=== PATIENT | male | born 1975 | race Caucasian/White ===

== ENCOUNTER 2016-05-29 19:28 | Emergency (ER) | payer OTHER ==
[~2016-05-29] VITALS: Ht 198.1 cm; Wt 122.1 kg
[~2016-05-29 19:28] MED LIST: AMOXICILLIN500 MG PO; COLACE100 MG PO; FLEXERIL10 MG PO; MEDROL DOSEPAK4 MG PO; NAPROSYN500 MG PO; NOHOMEMEDS; PERCOCET 5/31 TABLET PO; TYLENOL WITH C1 EACH PO; ZOFRAN4 MG PO; latuda; seroquel; zoloft
[2016-05-29] MEDS ORDERED: PREDNISONE20 MG PO (20:19)
[2016-05-29] MEDS ORDERED: ATARAX,VISTARIL25 MG PO (20:19)
[2016-05-29 20:33] VITALS: BP 148/91
== END 2016-05-29 20:34 | disposition home or self-care (01) ==
LOC: EME 19:28
DX: R21 Rash and other nonspecific skin eruption (principal); T50.905A Adverse effect of unspecified drugs, medicaments and biological substances, initial encounter; G89.29 Other chronic pain; F17.200 Nicotine dependence, unspecified, uncomplicated
CPT/HCPCS: 99281; 99284; J7512; Q0177

== ENCOUNTER 2016-06-20 00:06 | Emergency (ER) | payer OTHER ==
[~2016-06-20] VITALS: Ht 198.1 cm; Wt 128.0 kg
[~2016-06-20 00:06] MED LIST changes: +ATARAX,VISTARIL25 MG PO; +PREDNISONE20 MG PO
[2016-06-20] MEDS ORDERED: PEN-VEE K,VEET500 MG PO (00:34)
[2016-06-20] MEDS ORDERED: NORCO 5/3251 TABLET PO (00:34)
[2016-06-20 00:53] VITALS: BP 141/95
== END 2016-06-20 00:53 | disposition home or self-care (01) ==
LOC: EME 00:06
PROC: 3E0X3BZ Introduction of Anesthetic Agent into Cranial Nerves, Percutaneous Approach (ICD-10-PCS; principal; 2016-06-20)
DX: K04.7 Periapical abscess without sinus (principal); F17.200 Nicotine dependence, unspecified, uncomplicated
CPT/HCPCS: 99281; 99283

== ENCOUNTER 2016-11-09 12:08 | Emergency (ER) | payer OTHER ==
[~2016-11-09] VITALS: Ht 198.1 cm; Wt 126.0 kg
[~2016-11-09 12:08] MED LIST changes: +NORCO 5/3251 TABLET PO; +PEN-VEE K,VEET500 MG PO
[2016-11-09] MEDS ORDERED: TRAMADOL HCL50 MG PO (12:51)
[2016-11-09] MEDS ORDERED: PERCOCET 5/31 TABLET PO (12:51)
[2016-11-09] MEDS ORDERED: LYRICA100 MG PO (12:57)
[2016-11-09] MEDS ORDERED: NAPROXEN500 MG PO (12:58)
[2016-11-09] MEDS ORDERED: RANITIDINE HCL150 MG PO (12:58)
[2016-11-09] MEDS ORDERED: HYDROCODON-ACE1 EAC8 PO (12:58)
[2016-11-09] MEDS ORDERED: NEURONTIN600 MG PO (12:58)
[2016-11-09 13:29] VITALS: BP 123/73
== END 2016-11-09 13:30 | disposition home or self-care (01) ==
LOC: EME 12:08
DX: S92.351D Displaced fracture of fifth metatarsal bone, right foot, subsequent encounter for fracture with routine healing (principal); M79.671 Pain in right foot; W17.2XXD Fall into hole, subsequent encounter; F17.200 Nicotine dependence, unspecified, uncomplicated
CPT/HCPCS: 99281; 99284; J3010